=== PATIENT | female | born 1975 | race Caucasian/White ===

== ENCOUNTER 2017-06-22 16:28 | Emergency (ER) | payer OTHER ==
[~2017-06-22] VITALS: Ht 175.3 cm; Wt 75.0 kg
[~2017-06-22 16:28] MED LIST: CLON1 PO; FIORTAB4 PO; METO10 PO; PROP1TAB66 PO; TRAZ100 PO; ZOLO50TA PO
[2017-06-22 16:32] VITALS: BP 146/97; PULSE 98; RESP 20; TEMP 98.4; O2SAT 100
[2017-06-22] MEDS ORDERED: IBUPROFEN 600 MG TAB PO ONE (16:45)
--- NOTE | 2017-06-22 17:27 | PD ---
HPI Chief Complaint: Injury Time Seen by Provider: 16:45 Travel History International Travel<30 days: No Contact w/Intl Traveler<30days: No Traveled to known affect area: No History of Present Illness HPI The patient's 42 years old. 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 A Hospital door slammed on her left wrist causing sudden pain. Pain slightly worse with palpation. Severity of pain is mild. Onset sudden. No additional injury to report. PFSH Past Medical History Medical History: Denies Significant Hx Immunizations Current: No ?: Not LMP: 3 YEARS Past Surgical History Surgical History: No Previous Surgery Section: Yes (X 3) Family History Family Myocardial Infarction: Yes (FATHER EARLY 40'S) Social History Alcohol Use: Yes (OCC) Tobacco Use: No Substance Use: No Allergies-Medications (Allergen,Severity, Reaction): Coded Allergies: No Known Allergies (Verified , 03/26/13) Reported Meds & Prescriptions Reported Meds & Active Scripts Active Reported Zoloft (Sertraline HCl) 50 Mg Tab 100 Mg PO DAILY Inderal 10 Mg Tab (Propranolol HCl) 10 Mg Tab 20 Mg PO DAILY Fioricet (Acetaminophen/Butalbital/Caffeine) Tab 1 Tab PO Q4HPRN FOR HEADACHE Metoclopramide Hcl (Metoclopramide HCl) 10 Mg Tab 10 Mg PO QID Trazodone Hcl (Trazodone HCl) 100 Mg Tab 100 Mg PO HS Clonazepam 1 Mg Tab 1 Mg PO TID Review of Systems General / Constitutional: No: Fever Musculoskeletal: No: Pain Physical Exam Narrative GENERAL: 42 yo F, wnwd, nad SKIN: Warm and dry. HEAD: Atraumatic. Normocephalic. EYES: Pupils equal and round. No scleral icterus. No injection or drainage. MUSCULOSKELETAL: TTP ulnar aspect of the left hand overlying proximal fifth metacarpal. Minimal erythema present. Hand back stayer normal bilaterally. No significant deformity. NEUROLOGICAL: Awake and alert. No obvious cranial nerve deficits. Motor grossly within normal limits. Five out of 5 muscle strength in the arms and legs. Normal speech. PSYCHIATRIC: Appropriate mood and affect; insight and judgment normal. Data Data Last Documented VS Vital Signs Date Time Temp Pulse Resp B/P (MAP) Pulse Ox O2 Delivery O2 Flow Rate FiO2 06/22/17 17:36 06/22/17 16:32 98.4 98 20 100 Room Air VS reviewed BP 146/96 Orders Orders Hand, Complete ([id number]) (06/22/17 16:45) Wrist, Complete ([id number]) (06/22/17 16:45) Ice/Cold Pack (06/22/17 16:45) Ibuprofen (Motrin) (06/22/17 16:45) MDM Medical Decision Making Medical Screen Exam Complete: Yes Emergency Medical Condition: Yes Differential Diagnosis fracture, contusion, abrasion, ulnar injury, radius injury Narrative Course No evidence of fracture on imaging or exam. There is no snuffbox tenderness. Patient has normal strength and can return to work. Diagnosis Primary Impression: Hand contusion Qualified Codes: S60.222A - Contusion of left hand, initial encounter Referrals: Primary Care Physician 2 days Additional Instructions: You have a choice when it comes to health care, and we are glad that you chose [facility]. Hopefully, we have met your expectations on today's visit. You are welcome to return to [facility] at any time, as we are committed to meeting the health care needs of our community. Med/Other Pt SpecificInfo: No Change to Meds Disposition: 01 DISCHARGE HOME Condition: Aubrey Lowry MD Jun 22, 2017 17:27
--- NOTE | 2017-06-22 17:43 | RADRPT ---
EXAM DATE/TIME: 06/22/2017 16:53 [facility] COMPARISON: No previous studies available for comparison. INDICATIONS : Trauma. Wrist pain. MEDICAL HISTORY : None. SURGICAL HISTORY : None. ENCOUNTER: Initial ACUITY: 1 day PAIN SCORE: 2/10 LOCATION: Left upper extremity wrist FINDINGS: 3 views left hand. Bone alignment within normal limits. No evidence of fracture. Small osteophytes a t the thumb carpometacarpal joint. No evidence of joint narrowing. 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 CONCLUSION: Mild osteoarthritic findings. Otherwise within normal limits. Miguelito Ansari MD on June 22, 2017 at 17:40 Board Certified Radiologist. This report was verified electronically.
--- NOTE | 2017-06-22 17:43 | RADRPT ---
EXAM DATE/TIME: 06/22/2017 16:56 [facility] COMPARISON: No previous studies available for comparison. INDICATIONS : Trauma. Pain in wrist. MEDICAL HISTORY : None. SURGICAL HISTORY : None. ENCOUNTER: Initial ACUITY: 1 day PAIN SCORE: 2/10 LOCATION: Left upper extremity wrist FINDINGS: 3 views left wrist. Small osteophytes at the thumb carpometacarpal joint and scaphoid trapezium trape zoid joint. No evidence of joint narrowing. Bone alignment within normal limits. No evidence of frac ture. CONCLUSION: Mild osteoarthritic findings. Miguelito Ansari MD on June 22, 2017 at 17:42 Board Certified Radiologist. This report was verified electronically.
== END 2017-06-22 17:36 | disposition home or self-care (01) ==
LOC: NEPD 16:28
DX: S60.222A Contusion of left hand, initial encounter (principal); W23.0XXA Caught, crushed, jammed, or pinched between moving objects, initial encounter; Z79.899 Other long term (current) drug therapy
CPT/HCPCS: 73110; 73130; 99283